=== PATIENT | female | born 1985 | race American Indian/Alaskan Native ===

== ENCOUNTER 2018-12-17 15:18 | Emergency (ER) | payer MEDICAID, OTHER ==
[2018-12-17 15:31] VITALS: BP 161/96
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
[2018-12-17] MEDS ORDERED: DELTASONE PO ONE (17:29)
[2018-12-17] MEDS ORDERED: NORCO 5/325 PO ONE (17:29)
[2018-12-17] MEDS ORDERED: FLEXERIL PO ONE (17:29)
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
== END 2018-12-17 17:59 | disposition home or self-care (01) ==
LOC: ED 15:18
DX: M54.5 Low back pain (principal); M79.10 Myalgia, unspecified site; Z98.51 Tubal ligation status; V89.2XXA Person injured in unspecified motor-vehicle accident, traffic, initial encounter; Y93.89 Activity, other specified; Y92.488 Other paved roadways as the place of occurrence of the external cause; Y99.8 Other external cause status
CPT/HCPCS: 99282; J7512

== ENCOUNTER 2020-05-30 11:52 | Emergency (ER) | payer MEDICAID ==
[2020-05-30 12:16] VITALS: BP 167/99
--- NOTE | 2020-05-30 13:28 | Emergency Department Report ---
ED General Adult HPI - General Chief complaint: Fall Stated complaint: FALL Time Seen by Provider: 05/30/20 13:07 Source: patient Mode of arrival: Ambulatory Limitations: No Limitations - History of Present Illness Initial comments: 34-year-old -British female patient presents with complaints of right leg pain after a slip and fall at [facility] yesterday. She rates her current pain as a 7/10 in severity and states ibuprofen is not helping. She denies any numbness/tingling/weakness in her leg, bruising, swelling, or difficulty with ambulation. -: Sudden - Related Data Previous Rx's Medication Instructions Recorded Last Taken Type Cyclobenzaprine [Flexeril] 10 mg PO TID PRN #10 tablet 12/17/18 Unknown Rx Naproxen [Naprosyn] 500 mg PO BID PRN #20 tablet 12/17/18 Unknown Rx predniSONE [Deltasone] 20 mg PO DAILY #5 tablet 12/17/18 Unknown Rx Diclofenac Sodium 75 mg PO BID PRN #14 tablet. 05/30/20 Unknown Rx Allergies Allergy/AdvReac Type Severity Reaction Status Date / Time No Known Allergies Allergy Verified 12/17/18 15:21 ED Review of Systems ROS: Stated complaint: FALL Other details as noted in HPI Constitutional: denies: malaise Respiratory: denies: SOB with exertion Cardiovascular: denies: chest pain Gastrointestinal: denies: abdominal pain Musculoskeletal: denies: back pain Skin: denies: change in color Neurological: denies: numbness ED Past Medical Hx - Past Medical History Additional medical history: Childbirth - Surgical History Additional Surgical History: c-sectionx2. Tubal ligation - Social History Smoking Status: Never Smoker - Medications Home Medications: Home Medications Medication Instructions Recorded Confirmed Last Taken Type Cyclobenzaprine [Flexeril] 10 mg PO TID PRN #10 tablet 12/17/18 Unknown Rx Naproxen [Naprosyn] 500 mg PO BID PRN #20 tablet 12/17/18 Unknown Rx predniSONE [Deltasone] 20 mg PO DAILY #5 tablet 12/17/18 Unknown Rx Diclofenac Sodium 75 mg PO BID PRN #14 tablet. 05/30/20 Unknown Rx ED Physical Exam - General Limitations: No Limitations General appearance: alert, in no apparent distress - Head Head exam: Present: atraumatic, normocephalic - Eye Eye exam: Present: normal appearance. Absent: scleral icterus - Respiratory Respiratory exam: Present: normal lung sounds bilaterally. Absent: respiratory distress - Expanded Lower Extremity Exam Right Hip exam: Present: full ROM. Absent: swelling Upper Leg exam: Present: full ROM Knee exam: Present: full ROM. Absent: tenderness, swelling, laceration, ecchymosis, deformity, erythema, effusion Lower Leg exam: Present: full ROM. Absent: swelling, ecchymosis, deformity Ankle exam: Present: normal inspection, full ROM ED Course Vital Signs 05/30/20 12:12 Temperature 98.1 F Pulse Rate 83 Respiratory 18 Rate Blood Pressure 167/99 O2 Sat by Pulse 100 Oximetry ED Medical Decision Making - Medical Decision Making 34-year-old -British female patient presents with complaints of right leg pain after a slip and fall at [employer] yesterday. She rates her current pain as a 7/10 in severity and states ibuprofen is not helping. She denies any numbness/tingling/weakness in her leg, bruising, swelling, or difficulty with ambulation. No significant abnormalities are noted on exam of the right lower extremity. Will treat for muscle strain. Recommend follow-up with PCP in 3 days. Strict return precautions were discussed in detail with patient who verbalizes understanding peer Critical care attestation.: If time is entered above; I have spent that time in minutes in the direct care of this critically ill patient, excluding procedure time. ED Disposition Clinical Impression: Right leg pain Disposition: DC-01 TO HOME OR SELFCARE Is pt being admited?: No Condition: Stable Instructions: Muscle Strain Prescriptions: Diclofenac Sodium 75 mg PO BID PRN #14 tablet.dr STERLING Reason: pain Referrals: [facility] [Provider Group] - 3-5 Days
== END 2020-05-30 13:39 | disposition home or self-care (01) ==
LOC: ED 11:52
DX: M79.604 Pain in right leg (principal); Z98.890 Other specified postprocedural states; Z98.51 Tubal ligation status; Z79.899 Other long term (current) drug therapy
CPT/HCPCS: 99282